=== PATIENT | female | born 1990 | race Caucasian/White ===

== ENCOUNTER 2017-01-16 07:02 | Emergency (ER) | payer BC ==
[2017-01-16] MEDS ORDERED: Dicyclomine 10 MG Cap PO ONE (07:33)
[2017-01-16] MEDS ORDERED: Ondansetron 4 MG/2 ML SDV IVPUSH ONE (07:33)
--- NOTE | 2017-01-16 07:50 | EDM.PDOC ---
<LottIbrahima - Last Filed: 01/16/17 09:20> ED HPI GENERAL MEDICAL PROBLEM - General Chief Complaint: Abdominal Pain Stated Complaint: GALLBLADDER PROBLEMS Time Seen by Provider: 01/16/17 07:06 - History of Present Illness INITIAL COMMENTS - FREE TEXT/NARRATIVE: HISTORY AND PHYSICAL: History of present illness: This is a 26 -year-old female presenting to the emergency department with chief complaint of abdominal pain. Patient states she expresses a similar attack of abdominal pain 2 weeks ago she worked and found to have gallstones. So she is scheduled for a cholecystectomy on January 31. She says this morning she began to experience upper quadrant abdominal pain along with nausea. Denies fevers chills chest pain shortness breath. Review of systems: As per history of present illness and below otherwise all systems reviewed and negative. Past medical history: As per history of present illness and as reviewed below otherwise noncontributory. Surgical history: As per history of present illness and as reviewed below otherwise noncontributory. Social history: No reported history of drug or alcohol abuse. Family history: As per history of present illness and as reviewed below otherwise noncontributory. Physical exam: HEENT: Atraumatic, normocephalic, pupils reactive, negative for conjunctival pallor or scleral icterus, mucous membranes moist, throat clear, neck supple, nontender, trachea midline. Lungs: Clear to auscultation, breath sounds equal bilaterally, chest nontender. Heart: S1S2, regular, negative for clicks, rubs, or JVD. Abdomen: Soft, nondistended, nontender. Negative for masses or hepatosplenomegaly. Negative baum sign Negative for costovertebral tenderness. Extremities: Atraumatic, negative for cords or calf pain. Neurovascular unremarkable. Diagnostics: CBC CMP UA B-hcg Lipase Abdominal US Therapeutics: Zofran 4mg IV once Bentyl PO Impression: [] Plan: [] Definitive disposition and diagnosis as appropriate pending reevaluation and review of above. Upper Abdominal Pain Score (Numeric/FACES): 4 - Related Data Allergies Allergy/AdvReac Type Severity Reaction Status Date / Time ciprofloxacin [From Cipro] Allergy Rash Verified 01/16/17 07:18 ciprofloxacin HCl Allergy Rash Verified 01/16/17 07:18 [From Cipro] penicillin G Allergy Other Verified 01/16/17 07:18 Sulfa (Sulfonamide Allergy Other Verified 01/16/17 07:18 Antibiotics) Home Meds: Home Meds Dicyclomine [Bentyl] 20 mg PO TID #40 tab 01/16/17 [Rx] Loratadine [Claritin] 01/16/17 [History] Ondansetron [Zofran] 4 mg PO Q8H #25 tab 01/16/17 [Rx] Past Medical History - Past Health History Medical/Surgical History: Denies Medical/Surgical History Cardiovascular History: Reports: None Respiratory History: Reports: None Neurological History: Reports: None Psychiatric History: Reports: None - Infectious Disease History Infectious Disease History: Reports: Chicken Pox, Influenza - Past Surgical History HEENT Surgical History: Reports: Other (See Below) Other HEENT Surgeries/Procedures: wisdom tooth surgery Cardiovascular Surgical History: Reports: None Social & Family History - Tobacco Use Smoking Status *Q: Never Smoker Second Hand Smoke Exposure: No - Alcohol Use Days Per Week of Alcohol Use: 1 Number of Drinks Per Day: 2 Total Drinks Per Week: 2 - Recreational Drug Use Recreational Drug Use: No ED ROS GENERAL - Review of Systems Review Of Systems: See Below ED EXAM, GI/ABD - Physical Exam Exam: See Below Course - Vital Signs Last Recorded V/S: Last Vital Signs Temp 36.5 C 01/16/17 09:42 Pulse 65 01/16/17 09:42 Resp 20 01/16/17 09:42 BP 115/72 01/16/17 09:42 Pulse Ox 100 01/16/17 09:42 - Orders/Labs/Meds Labs: Laboratory Tests 01/16/17 01/16/17 01/16/17 Range/Units 07:39 07:39 07:58 WBC 6.16 (4.0-11.0) K/uL RBC 4.57 (4.30-5.90) M/uL Hgb 13.6 (12.0-16.0) g/dL Hct 40.4 (36.0-46.0) % MCV 88.4 (80.0-98.0) fL MCH 29.8 (27.0-32.0) pg MCHC 33.7 (31.0-37.0) g/dL RDW Std Deviation 38.2 (28.0-62.0) fl RDW Coeff of Arnie 12 (11.0-15.0) % Plt Count 222 (150-400) K/uL MPV 10.60 (7.40-12.00) fL Neut % (Auto) 58.9 (48.0-80.0) % Lymph % (Auto) 31.8 (16.0-40.0) % Rice % (Auto) 8.1 (0.0-15.0) % Eos % (Auto) 1.0 (0.0-7.0) % Baso % (Auto) 0.2 (0.0-1.5) % Neut # (Auto) 3.6 (1.4-5.7) K/uL Lymph # (Auto) 2.0 (0.6-2.4) K/uL Rice # (Auto) 0.5 (0.0-0.8) K/uL Eos # (Auto) 0.1 (0.0-0.7) K/uL Baso # (Auto) 0.0 (0.0-0.1) K/uL Sodium 139 (136-146) mmol/L Potassium 3.6 (3.5-5.1) mmol/L Chloride 107 (98-110) mmol/L Carbon Dioxide 25 (21-31) mmol/L BUN 15 (6.0-23.0) mg/dL Creatinine 0.8 (0.6-1.5) mg/dL Est Cr Clr Drug Dosing 108.44 mL/min Estimated GFR (MDRD) > 60.0 ml/min Glucose 99 (60-110) mg/dL Calcium 9.5 (8.8-10.8) mg/dL Total Bilirubin 0.6 (0.1-1.5) mg/dL AST 18 (5-40) IU/L ALT 12 (8-54) IU/L Alkaline Phosphatase 47 (40-150) Total Protein 7.4 (6.0-8.0) g/dL Albumin 4.0 (3.5-5.0) g/dL Globulin 3.4 (2.0-3.5) g/dL Albumin/Globulin Ratio 1.2 L (1.3-2.8) Lipase 19 (7-80) U/L Urine Color Urine Appearance Urine pH (5.0-8.0) Ur Specific Makanda (1.001-1.035) Urine Protein (NEGATIVE) mg/dL Urine Glucose (UA) (NEGATIVE) mg/dL Urine Ketones (NEGATIVE) mg/dL Urine Occult Blood (NEGATIVE) Urine Nitrite (NEGATIVE) Urine Bilirubin (NEGATIVE) Urine Urobilinogen (<2.0) EU/dL Ur Leukocyte Esterase (NEGATIVE) Urine RBC (0-2/HPF) Urine WBC (0-5/HPF) Ur Epithelial Cells (NONE-FEW) Amorphous Sediment (NEGATIVE) Urine Bacteria (NEGATIVE) Urine Mucus (NONE-MOD) Urine HCG, Qual NEGATIVE (NEGATIVE) 01/16/17 Range/Units 07:58 WBC (4.0-11.0) K/uL RBC (4.30-5.90) M/uL Hgb (12.0-16.0) g/dL Hct (36.0-46.0) % MCV (80.0-98.0) fL MCH (27.0-32.0) pg MCHC (31.0-37.0) g/dL RDW Std Deviation (28.0-62.0) fl RDW Coeff of Arnie (11.0-15.0) % Plt Count (150-400) K/uL MPV (7.40-12.00) fL Neut % (Auto) (48.0-80.0) % Lymph % (Auto) (16.0-40.0) % Rice % (Auto) (0.0-15.0) % Eos % (Auto) (0.0-7.0) % Baso % (Auto) (0.0-1.5) % Neut # (Auto) (1.4-5.7) K/uL Lymph # (Auto) (0.6-2.4) K/uL Rice # (Auto) (0.0-0.8) K/uL Eos # (Auto) (0.0-0.7) K/uL Baso # (Auto) (0.0-0.1) K/uL Sodium (136-146) mmol/L Potassium (3.5-5.1) mmol/L Chloride (98-110) mmol/L Carbon Dioxide (21-31) mmol/L BUN (6.0-23.0) mg/dL Creatinine (0.6-1.5) mg/dL Est Cr Clr Drug Dosing mL/min Estimated GFR (MDRD) ml/min Glucose (60-110) mg/dL Calcium (8.8-10.8) mg/dL Total Bilirubin (0.1-1.5) mg/dL AST (5-40) IU/L ALT (8-54) IU/L Alkaline Phosphatase (40-150) Total Protein (6.0-8.0) g/dL Albumin (3.5-5.0) g/dL Globulin (2.0-3.5) g/dL Albumin/Globulin Ratio (1.3-2.8) Lipase (7-80) U/L Urine Color YELLOW Urine Appearance CLEAR Urine pH 5.5 (5.0-8.0) Ur Specific Makanda >= 1.030 (1.001-1.035) Urine Protein NEGATIVE (NEGATIVE) mg/dL Urine Glucose (UA) NEGATIVE (NEGATIVE) mg/dL Urine Ketones NEGATIVE (NEGATIVE) mg/dL Urine Occult Blood NEGATIVE (NEGATIVE) Urine Nitrite NEGATIVE (NEGATIVE) Urine Bilirubin NEGATIVE (NEGATIVE) Urine Urobilinogen 0.2 (<2.0) EU/dL Ur Leukocyte Esterase NEGATIVE (NEGATIVE) Urine RBC NONE SEEN (0-2/HPF) Urine WBC 2-3 (0-5/HPF) Ur Epithelial Cells FEW (NONE-FEW) Amorphous Sediment LIGHT (NEGATIVE) Urine Bacteria FEW (NEGATIVE) Urine Mucus LIGHT (NONE-MOD) Urine HCG, Qual (NEGATIVE) Meds: Medications Discontinued Medications Generic Name Dose Route Start Last Admin Trade Name Freq PRN Reason Stop Dose Admin Dicyclomine HCl 10 mg 01/16/17 07:33 01/16/17 07:46 Bentyl PO 01/16/17 07:34 10 mg ONETIME ONE Administration Ondansetron HCl 4 mg 01/16/17 07:33 01/16/17 07:46 Zofran IVPUSH 01/16/17 07:34 4 mg ONETIME ONE Administration Departure - Departure Time of Disposition: 09:20 Disposition: Home, Self-Care 01 Condition: Good Clinical Impression: Biliary colic - Discharge Information Prescriptions: Dicyclomine [Bentyl] 20 mg PO TID #40 tab Ondansetron [Zofran] 4 mg PO Q8H #25 tab Instructions: Abdominal Pain, Adult, [id number] Referrals: PCP,None [Primary Care Provider] - Forms: ED Department Discharge Additional Instructions: The following information is given to patients seen in the emergency department who are being discharged to home. This information is to outline your options for follow-up care. We provide all patients seen in our emergency department with a follow-up referral. The need for follow-up, as well as the timing and circumstances, are variable depending upon the specifics of your emergency department visit. If you don't have a primary care physician on staff, we will provide you with a referral. We always advise you to contact your personal physician following an emergency department visit to inform them of the circumstance of the visit and for follow-up with them and/or the need for any referrals to a consulting specialist. The emergency department will also refer you to a specialist when appropriate. This referral assures that you have the opportunity for follow-up care with a specialist. All of these measure are taken in an effort to provide you with optimal care, which includes your follow-up. Under all circumstances we always encourage you to contact your private physician who remains a resource for coordinating your care. When calling for follow-up care, please make the office aware that this follow-up is from your recent emergency room visit. If for any reason you are refused follow-up, please contact the [facility] Emergency Department at and asked to speak to the emergency department charge nurse. Please return to seek further medical attention if he expands any fevers, chills , vomiting, worsening abdominal pain. <Lay Portillo - Last Filed: 01/16/17 10:54> ED HPI GENERAL MEDICAL PROBLEM - History of Present Illness INITIAL COMMENTS - FREE TEXT/NARRATIVE: Seen and reviewed this patient with Dr. Lott and agree with above. Patient diagnosed with biliary colic sent home with Katelyn and will follow up with Dr. Driscoll as she is scheduled for cholecystectomy in 2 weeks. Patient is aware to return immediately if any symptoms worsen or change
[2017-01-16 08:22] LABS: CHLORIDE,CL 107 mmol/L (98-110); SODIUM,NA 139 mmol/L (136-146)
--- NOTE | 2017-01-16 09:08 | US ---
Abdominal sonogram Multiple longitudinal and transverse sections were obtained with real-time ultrasound. Findings: The gallbladder is physiologically distended without bile duct dilation and there are no a coustic shadowing calculi. Gallbladder is not tender. Common bile duct is at upper normal limits and the right kidney is normal. Impression: Normal upper abdominal sonogram
[2017-01-16 09:46] VITALS: BP 115/72
== END 2017-01-16 09:43 | disposition home or self-care (01) ==
LOC: MW.ED 07:02
DX: K80.50 Calculus of bile duct without cholangitis or cholecystitis without obstruction (principal); Z98.818 Other dental procedure status; Z88.0 Allergy status to penicillin; Z88.2 Allergy status to sulfonamides; Z88.1 Allergy status to other antibiotic agents
CPT/HCPCS: 36415; 76700; 80053; 81001; 81025; 83690; 85025; 96374; 99284; A9270; J2405

== ENCOUNTER 2017-01-31 10:22 | Day surgery (SDC) | payer BC ==
[~2017-01-31 10:22] MED LIST: Lactated Ringers 1,000 ML IV SCH
--- NOTE | 2017-01-31 11:43 | PCM.PREANE ---
Preanesthetic Assessment - Anesthesia/Transfusion/Family Hx Anesthesia History: Prior Anesthesia Without Reaction Family History of Anesthesia Reaction: No Transfusion History: No Prior Transfusion(s) Intubation History: Unknown - Review of Systems General: No Symptoms Pulmonary: No Symptoms Cardiovascular: No Symptoms Gastrointestinal: Abdominal Pain Neurological: No Symptoms Other: Reports: None - Physical Assessment O2 Sat by Pulse Oximetry: 98 Respiratory Rate: 16 Vital Signs: Last Vital Signs Temp 36.5 C 01/31/17 11:27 Pulse 73 01/31/17 11:27 Resp 16 01/31/17 11:27 BP 136/67 01/31/17 11:27 Pulse Ox 98 01/31/17 11:27 Height: 1.73 m Weight: 81.647 kg ASA Class: 1 Mental Status: Alert & Oriented x3 Airway Class: Mallampati = 2 Dentition: Reports: Normal Dentition Thyro-Mental Finger Breadths: 3 Mouth Opening Finger Breadths: 3 ROM/Head Extension: Full Lungs: Clear to Auscultation, Normal Respiratory Effort Cardiovascular: Regular Rate, Regular Rhythm - Lab Values: Laboratory Last Values Urine HCG, Qual NEGATIVE (NEGATIVE) 01/31/17 10:31 - Allergies Allergies/Adverse Reactions: Allergies Allergy/AdvReac Type Severity Reaction Status Date / Time ciprofloxacin [From Cipro] Allergy Rash Verified 01/16/17 07:18 ciprofloxacin HCl Allergy Rash Verified 01/16/17 07:18 [From Cipro] penicillin G Allergy Other Verified 01/16/17 07:18 Sulfa (Sulfonamide Allergy Other Verified 01/16/17 07:18 Antibiotics) - Blood Blood Available: No - Anesthesia Plan Pre-Op Medication Ordered: None - Acknowledgements Anesthesia Type Planned: MAC Pt an Appropriate Candidate for the Planned Anesthesia: Yes Alternatives and Risks of Anesthesia Discussed w Pt/Guardian: Yes Pt/Guardian Understands and Agrees with Anesthesia Plan: Yes PreAnesthesia Questionnaire - Past Health History Medical/Surgical History: Denies Medical/Surgical History Cardiovascular History: Reports: None Respiratory History: Reports: None Gastrointestinal History: Reports: Chronic Constipation, Other (See Below) ( bloated abdomen, fatty food intolerance, intermittent diarrhea, sludge in gall bladder) Genitourinary History: Reports: Other (See Below) (vulvitis,h/o genital ulcer) Neurological History: Reports: None Psychiatric History: Reports: None - Infectious Disease History Infectious Disease History: Reports: Chicken Pox, Influenza - Past Surgical History Head Surgeries/Procedures: Reports: None HEENT Surgical History: Reports: Oral Surgery, Other (See Below) Other HEENT Surgeries/Procedures: wisdom tooth surgery Cardiovascular Surgical History: Reports: None - SUBSTANCE USE Smoking Status *Q: Never Smoker Second Hand Smoke Exposure: No Days Per Week of Alcohol Use: 1 Number of Drinks Per Day: 2 Total Drinks Per Week: 2 Recreational Drug Use History: No - HOME MEDS Home Medications: Home Meds Dicyclomine [Bentyl] 20 mg PO TID #40 tab 01/16/17 [Rx] Loratadine [Claritin] 10 mg PO DAILY 01/16/17 [History] Ondansetron [Zofran] 4 mg PO Q8H #25 tab 01/16/17 [Rx] Cimetidine [Acid Channel Layer] 200 mg PO ASDIRECTED 01/25/17 [History] - CURRENT (IN HOUSE) MEDS Current Meds: Current Medications Lactated Ringer's (Ringers, Lactated) 1,000 mls @ 125 mls/hr IV ASDIRECTED [facility] Last Admin: 01/31/17 11:30 Dose: 125 mls/hr
[2017-01-31] MEDS ORDERED: Midazolam 1 MG/ML 2 ML SDV ONE (11:48)
[2017-01-31] MEDS ORDERED: Lidocaine 2% 5 ML SDV ONE (11:48)
[2017-01-31] MEDS ORDERED: Propofol 200 MG/20 ML SDV ONE ×2 (11:48→12:05)
[2017-01-31] MEDS ORDERED: fentaNYL 100 MCG/2 ML SDV ONE (11:49)
--- NOTE | 2017-01-31 12:39 | PCM.OPNOTE ---
- General Post-Op/Procedure Note Date of Surgery/Procedure: 01/31/17 Operative Procedure(s): egd w bx. colonosocpy w bx Findings: see dict [id number] Pre Op Diagnosis: abd pain w alternating constipation and diarrhea Post-Op Diagnosis: Same Anesthesia Technique: Moderate Sedation Primary Surgeon: Anil Driscoll Pathology: sent, egd and colon bx Complications: None Condition: Good
--- NOTE | 2017-01-31 13:11 | PCM48HPAN ---
Post Anesthesia Note - EVALUATION WITHIN 48HRS OF ANESTHETIC Vital Signs in Normal Range: Yes Patient Participated in Evaluation: Yes Respiratory Function Stable: Yes Airway Patent: Yes Cardiovascular Function Stable: Yes Hydration Status Stable: Yes Pain Control Satisfactory: Yes Nausea and Vomiting Control Satisfactory: Yes Mental Status Recovered: Yes
--- NOTE | 2017-01-31 13:14 | PCM.POSTAN ---
POST ANESTHESIA ASSESSMENT - MENTAL STATUS Mental Status: Alert - RESPIRATORY Respiratory Status: Respiratory Rate WNL, Airway Patent, O2 Saturation Stable - CARDIOVASCULAR CV Status: Pulse Rate WNL, Blood Pressure Stable - GASTROINTESTINAL GI Status: No Symptoms - POST OP HYDRATION Hydration Status: Adequate & Stable
[2017-01-31 13:50] VITALS: BP 107/89
--- NOTE | 2017-01-31 14:06 | OR ---
SURGEON: Anil Driscoll MD DATE OF PROCEDURE: 01/31/2017 PREOPERATIVE DIAGNOSIS: Abdominal pain and alternating diarrhea and constipation. POSTOPERATIVE DIAGNOSES: Gastritis and hemorrhoids. PROCEDURE PERFORMED: Esophagogastroduodenoscopy with biopsy and colonoscopy with biopsy. EGD FINDINGS: 1. The patient is easily sedated with [employer] INSPECTOR and Diprivan. The patient is soundly snoring. 2. Oropharynx and proximal esophagus are free of disease and no stricture, inflammation, ulceration, or inflammation. Distal esophagus at GE junction at 40 shows mild salmon color change consistent with very mild acid reflux, and stomach rugae is normal in appearance and antrum is a little bit inflamed. No bile, food particle, blood, or ulceration observed. Duodenum was grossly normal. Scope retrieved back to the stomach. Retroflexed look at the fundus of the stomach, there was no hiatal hernia. Biopsy done at antrum, body, GE junction at 40, and sucked out the air while scope pulling out. DESCRIPTION OF PROCEDURE: The patient was taken to the endoscopy room, and with the [employer]PECTOR, Diprivan was administered. A well-lubricated EGD scope was gently inserted through the oropharynx, down the esophagus, passing through the gastroesophageal junction, into the stomach. The mucosa was examined upon the passage. Any etiology will be noted. Once in the stomach, we continued to advance to the distal antrum, passed through the pylorus into the second portion of the duodenum. Again, the mucosa was examined for any abnormality and etiology. The scope was then retrieved back to the stomach and then retroflexed to look at the fundus of the stomach. If a biopsy was indicated, we will biopsy the antrum, body, and gastroesophageal junction. The air will be sucked out while the scope is retrieved to reduce the patient's discomfort. The patient tolerated the procedure well. There were no intraoperative complications. Dr. Driscoll was present through the whole procedure. Prior to surgery, a time-out had been called, the patient identified, procedure identified and antibiotic administered. COLONOSCOPY FINDIN. The patient is easily sedated with [employer]PECTOR and Diprivan. The patient is soundly snoring. 2. Bowel prep is excellent, very little liquid stool, almost to none, and no semi-formed stool. 3. Colon is rather redundant at the sigmoid requiring many maneuvering in order to get to the cecum and cecum indicated by ileocecal fold, one-to-one indentation, light emittance, and appendiceal orifice. Mucosa examined upon scope pulling out, the patient does not have diverticulosis, polyp, mass, growth, inflammation, stricture, ulceration, AV malformation, blood, none of those observed and the patient does not have external hemorrhoids and has very mild internal hemorrhoids. A random biopsy was done for abdominal pain and the patient would benefit from repeat colonoscopy 10 years from today or if clinically indicated otherwise or if biopsy indicated otherwise. DESCRIPTION OF PROCEDURE: The patient was taken to the endoscopy room. A time out was called, patient identified, and procedure identified. Diprivan was then administrated. Patient went from awake to sleep, hearing doctor talking or door closing is normal. Perineum inspection and digital examination were then performed. A well- lubricated colonoscope was gently inserted through the rectum, advanced past the rectosigmoid junction, the descending colon, splenic flexure, transverse colon, hepatic flexure, ascending colon, arrived to the cecum. Cecum was identified as dictated in the finding. Then the scope was carefully withdrawn while attention was paid to the mucosal surface for any abnormality. Air will be sucked out during the scope withdrawal. At the rectum, retroflexed to examine any rectal diseases, fistula or hemorrhoids. During mucosal examination, abnormality or polyp was noted; picture taken and biopsy performed. Patient tolerated procedure well. There were no intraoperative complications, and Dr. Driscoll was present throughout the whole procedure. Always, thank you for the kind referral. SHARONDA / SUZANNE /[id number]
== END 2017-01-31 13:55 | disposition home or self-care (01) ==
LOC: MW.SDS 10:22
PROVIDERS: ATTEND Surgery
DX: K29.50 Unspecified chronic gastritis without bleeding (principal); K64.8 Other hemorrhoids; K58.9 Irritable bowel syndrome, unspecified; Z87.440 Personal history of urinary (tract) infections; Z88.0 Allergy status to penicillin; Z88.1 Allergy status to other antibiotic agents; Z88.2 Allergy status to sulfonamides; Z79.899 Other long term (current) drug therapy; Z98.890 Other specified postprocedural states
CPT/HCPCS: 43239; 45380; 81025; J2250; J3010; J7120; 00740; 88305; 88312; J2704

== ENCOUNTER 2018-03-03 15:39 | Emergency (ER) | payer BC, OTHER ==
[2018-03-03 15:55] VITALS: BP 134/75
--- NOTE | 2018-03-03 16:20 | EDM.PDOC ---
ED HPI GENERAL MEDICAL PROBLEM - General Chief Complaint: Skin Complaint Stated Complaint: SHINGLES Time Seen by Provider: 03/03/18 15:49 Source of Information: Reports: Patient History Limitations: Reports: No Limitations - History of Present Illness INITIAL COMMENTS - FREE TEXT/NARRATIVE: HISTORY AND PHYSICAL: History of present illness: Patient is a 27-year-old female who presents to the emergency room today with concerns of shingles. She states that years ago she did have a shingles outbreak which was very painful to her posterior trunk. Yesterday she noticed some blistering lesions to her right side of her back which felt similar to her previous shingle episode. She describes the pain as a sharp burning sensation. She has tried [id number] Tylenol and ibuprofen without pain relief. She denies any fever, chills, chest pain, shortness of breath or cough. Denies any abdominal pain, nausea, vomiting, diarrhea or constipation. Review of systems: As per history of present illness and below otherwise all systems reviewed and negative. Past medical history: As per history of present illness and as reviewed below otherwise noncontributory. Surgical history: As per history of present illness and as reviewed below otherwise noncontributory. Social history: No reported history of drug or alcohol abuse. Family history: As per history of present illness and as reviewed below otherwise noncontributory. Physical exam: General: Well-developed and well-nourished 27-year-old female. Alert and oriented. Nontoxic appearing and in no acute distress. HEENT: Atraumatic, normocephalic, pupils equal and reactive bilaterally, negative for conjunctival pallor or scleral icterus, mucous membranes moist, throat clear, neck supple, nontender, trachea midline. No drooling or trismus noted. No meningeal signs Lungs: Clear to auscultation, breath sounds equal bilaterally, chest nontender. Heart: S1S2, regular rate and rhythm without overt murmur Abdomen: Soft, nondistended, nontender. Negative for masses or hepatosplenomegaly. Negative for costovertebral tenderness. Pelvis: Stable nontender. Genitourinary: Deferred. Rectal: Deferred. Skin: Vesicular lesions noted in a linear pattern starting at the right posterior back below the bra line that his wrapping towards her axillary line. This does look consistent with herpes zoster. Extremities: Atraumatic, negative for cords or calf pain. Neurovascular unremarkable. Neuro: Awake, alert, oriented. Cranial nerves II through XII unremarkable. Cerebellum unremarkable. Motor and sensory unremarkable throughout. Exam nonfocal. Notes: We discussed signs and symptoms that would prompt her to return to the emergency room. I do want her to follow up with her primary care provider in the next 1-2 days. 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 She voices understanding and is agreeable to plan of care. Diagnostics: None Therapeutics: None Prescription: Acyclovir 800 mg 5 times daily 7 days [place] (#20) Impression: Shingles Plan: 1. Take the medication as prescribed. 2. Avoid hot showers. He may use Benadryl as needed. Take the prescribed [place] for moderate to severe pain. This does cause drowsiness, so do not take it will driving her needing to be functioning outside of the house. 3. Antiviral therapy does reduce the duration of the viral shedding - but this is contagious. Please make sure you are doing good hand washing. 4. Please follow-up with your primary care provider in the next 1-2 days. Return to the ED as needed and as discussed. Definitive disposition and diagnosis as appropriate pending reevaluation and review of above. ribs/back Pain Score (Numeric/FACES): 3 - Related Data Allergies Allergy/AdvReac Type Severity Reaction Status Date / Time ciprofloxacin [From Cipro] Allergy Rash Verified 03/03/18 15:54 ciprofloxacin HCl Allergy Rash Verified 03/03/18 15:54 [From Cipro] penicillin G Allergy Other Verified 03/03/18 15:54 Sulfa (Sulfonamide Allergy Other Verified 03/03/18 15:54 Antibiotics) Home Meds: Home Meds Loratadine [Claritin] 10 mg PO DAILY 01/16/17 [History] Cimetidine [Acid Overlock Operator] 200 mg PO DAILY 01/25/17 [History] Acyclovir 800 mg PO 5XDAY 7 Days #35 tablet 03/03/18 [Rx] Ethinyl Estradiol/Drospirenone [Gianvi 3 mg-0.02 mg Tablet] 1 each PO ASDIRECTED 03/03/18 [History] Hydrocodone/Acetaminophen [Hydrocodon-Acetaminophen 5-325] 1 each PO Q4HR PRN # 20 tablet 03/03/18 [Rx] Past Medical History - Past Health History Medical/Surgical History: Denies Medical/Surgical History Cardiovascular History: Reports: None Respiratory History: Reports: None Gastrointestinal History: Reports: Chronic Constipation, Other (See Below) Genitourinary History: Reports: Other (See Below) Neurological History: Reports: None Psychiatric History: Reports: None - Infectious Disease History Infectious Disease History: Reports: Shingles - Past Surgical History Head Surgeries/Procedures: Reports: None HEENT Surgical History: Reports: Oral Surgery, Other (See Below) Other HEENT Surgeries/Procedures: wisdom tooth surgery Cardiovascular Surgical History: Reports: None Social & Family History - Family History Family Medical History: Noncontributory - Tobacco Use Smoking Status *Q: Never Smoker Second Hand Smoke Exposure: No - Caffeine Use Caffeine Use: Reports: Coffee - Recreational Drug Use Recreational Drug Use: No ED ROS GENERAL - Review of Systems Review Of Systems: ROS reveals no pertinent complaints other than HPI. ED EXAM, SKIN/RASH Exam: See Below (See dictation) Course - Vital Signs Last Recorded V/S: Last Vital Signs Temp 98.1 F 03/03/18 15:52 Pulse 97 03/03/18 15:52 Resp 18 03/03/18 15:52 BP 134/75 03/03/18 15:52 Pulse Ox 96 03/03/18 15:52 Departure - Departure Time of Disposition: 16:19 Disposition: Home, Self-Care 01 Clinical Impression: Shingles Qualifiers: Herpes zoster complications: without complications Qualified Code(s): B02.9 - Zoster without complications - Discharge Information Prescriptions: Hydrocodone/Acetaminophen [Hydrocodon-Acetaminophen 5-325] 1 each PO Q4HR PRN # 20 tablet PRN Reason: Pain Acyclovir 800 mg PO 5XDAY 7 Days #35 tablet Instructions: Shingles, [id number] Referrals: PCP,None [Primary Care Provider] - Forms: ED Department Discharge Additional Instructions: The following information is given to patients seen in the emergency department who are being discharged to home. This information is to outline your options for follow-up care. We provide all patients seen in our emergency department with a follow-up referral. The need for follow-up, as well as the timing and circumstances, are variable depending upon the specifics of your emergency department visit. If you don't have a primary care physician on staff, we will provide you with a referral. We always advise you to contact your personal physician following an emergency department visit to inform them of the circumstance of the visit and for follow-up with them and/or the need for any referrals to a consulting specialist. The emergency department will also refer you to a specialist when appropriate. This referral assures that you have the opportunity for follow-up care with a specialist. All of these measure are taken in an effort to provide you with optimal care, which includes your follow-up. Under all circumstances we always encourage you to contact your private physician who remains a resource for coordinating your care. When calling for follow-up care, please make the office aware that this follow-up is from your recent emergency room visit. If for any reason you are refused follow-up, please contact the [facility] Emergency Department at and asked to speak to the emergency department charge nurse. [facility] [address] [place] [id number] 1. Take the medication as prescribed. 2. Avoid hot showers. He may use Benadryl as needed. Take the prescribed [place] for moderate to severe pain. This does cause drowsiness, so do not take it will driving her needing to be functioning outside of the house. 3. Antiviral therapy does reduce the duration of the viral shedding - but this is contagious. Please make sure you are doing good hand washing. 4. Please follow-up with your primary care provider in the next 1-2 days. Return to the ED as needed and as discussed.
== END 2018-03-03 16:35 | disposition home or self-care (01) ==
LOC: MW.ED 15:39
DX: B02.9 Zoster without complications (principal); Z88.1 Allergy status to other antibiotic agents; Z88.2 Allergy status to sulfonamides; Z79.899 Other long term (current) drug therapy
CPT/HCPCS: 99282; 99283

== ENCOUNTER 2019-05-04 16:18 | Emergency (ER) | payer OTHER ==
[2019-05-04 16:35] VITALS: BP 156/97
--- NOTE | 2019-05-04 17:15 | EDM.PDOC ---
ED HPI GENERAL MEDICAL PROBLEM - General Chief Complaint: General Stated Complaint: CARBON MONOXIDE POISONING Time Seen by Provider: 05/04/19 16:34 Source of Information: Reports: Patient History Limitations: Reports: No Limitations - History of Present Illness INITIAL COMMENTS - FREE TEXT/NARRATIVE: HISTORY AND PHYSICAL: History of present illness: Patient is a 28-year-old female who presents to the ED today with concern of a year-long feeling of feeling tired, run down, and dizzy. Patient states she has had multiple workups in the past to evaluate this and has not found a source. Patient states that she had her furnace fixed today and was told that the furnace could have been leaking carbon monoxide. Patient is concerned that she may be exposed to chronic carbon monoxide. Patient denies any change in her symptoms from her baseline over the past year. Patient denies any other symptoms or concerns. Patient denies fever, chills, chest pain, shortness of breath, or cough. Denies headache, neck stiff ness, change in vision, syncope, or near syncope. Denies nausea, vomiting, abdominal pain, diarrhea, constipation, or dysuria. Has not noted any blood in urine or stool. Patient has been eating and drinking appropriately. Review of systems: As per history of present illness and below otherwise all systems reviewed and negative. Past medical history: As per history of present illness and as reviewed below otherwise noncontributory. Surgical history: As per history of present illness and as reviewed below otherwise noncontributory. Social history: See social history for further information Family history: As per history of present illness and as reviewed below otherwise noncontributory. Physical exam: General: Patient is alert, oriented, and in no acute distress. Patient sitting comfortably on exam table. HEENT: Atraumatic, normocephalic, pupils equal and reactive bilaterally, negative for conjunctival pallor or scleral icterus, mucous membranes moist, TMs normal bilaterally, throat clear, neck supple, nontender, trachea midline. No drooling or trismus noted. No meningeal signs. No hot potato voice noted. Lungs: Clear to auscultation, breath sounds equal bilaterally, chest nontender. Heart: S1S2, regular rate and rhythm without overt murmur Abdomen: Soft, nondistended, nontender. Negative for masses or hepatosplenomegaly. Negative for costovertebral tenderness. Pelvis: Stable nontender. Genitourinary: Deferred. Rectal: Deferred. Skin: Intact, warm, dry. No lesions or rashes noted. Extremities: Atraumatic, negative for cords or calf pain. Neurovascular unremarkable. Neuro: Awake, alert, oriented. Cranial nerves II through XII unremarkable. Cerebellum unremarkable. Motor and sensory unremarkable throughout. Exam nonfocal. Notes: Discussed the importance for follow-up with a primary care provider. Voices understanding and is agreeable to plan of care. Denies any further questions or concerns at this time. Diagnostics: CBC, CMP, TSH, UA, carboxyhemoglobin Therapeutics: None Prescription: None Impression: Medical screening exam Plan: 1. You can alternate ibuprofen and Tylenol as directed for pain and discomfort. 2. Follow-up with your primary care provider as discussed. Return to the ED as needed and as discussed. Definitive disposition and diagnosis as appropriate pending reevaluation and review of above. - Related Data Allergies Allergy/AdvReac Type Severity Reaction Status Date / Time ciprofloxacin [From Cipro] Allergy Rash Verified 03/03/18 15:54 ciprofloxacin HCl Allergy Rash Verified 03/03/18 15:54 [From Cipro] penicillin G Allergy Other Verified 03/03/18 15:54 Sulfa (Sulfonamide Allergy Other Verified 03/03/18 15:54 Antibiotics) Home Meds: Home Meds Loratadine [Claritin] 10 mg PO DAILY 01/16/17 [History] Cimetidine [Tagamet Hb] 400 mg PO DAILY 05/04/19 [History] Ethinyl Estradiol/Drospirenone [Gianvi 3 mg-0.02 mg Tablet] 1 tab PO DAILY 05/04 [History] Sertraline HCl [Zoloft] 50 mg PO BEDTIME 05/04/19 [History] Past Medical History - Past Health History Medical/Surgical History: Denies Medical/Surgical History Cardiovascular History: Reports: None Respiratory History: Reports: None Gastrointestinal History: Reports: Chronic Constipation, Other (See Below) Genitourinary History: Reports: Other (See Below) Neurological History: Reports: None Psychiatric History: Reports: None, Anxiety - Infectious Disease History Infectious Disease History: Reports: Shingles - Past Surgical History Head Surgeries/Procedures: Reports: None HEENT Surgical History: Reports: Oral Surgery, Other (See Below) Other HEENT Surgeries/Procedures: wisdom tooth surgery Cardiovascular Surgical History: Reports: None Social & Family History - Family History Family Medical History: Noncontributory - Tobacco Use Smoking Status *Q: Never Smoker - Caffeine Use Caffeine Use: Reports: Coffee - Recreational Drug Use Recreational Drug Use: No ED ROS GENERAL - Review of Systems Review Of Systems: Comprehensive ROS is negative, except as noted in HPI. ED EXAM, GENERAL - Physical Exam Exam: See Below (See dictation) Course - Vital Signs Last Recorded V/S: Last Vital Signs Temp 96.7 F 05/04/19 16:32 Pulse 114 H 05/04/19 16:32 Resp 18 05/04/19 16:32 BP 156/97 H 05/04/19 16:32 Pulse Ox 97 05/04/19 16:32 - Orders/Labs/Meds Labs: Laboratory Tests 05/04/19 05/04/19 05/04/19 Range/Units 17:21 17:21 17:21 WBC 7.84 (4.0-11.0) K/uL RBC 4.52 (4.30-5.90) M/uL Hgb 13.7 (12.0-16.0) g/dL Hct 39.8 (36.0-46.0) % MCV 88.1 (80.0-98.0) fL MCH 30.3 (27.0-32.0) pg MCHC 34.4 (31.0-37.0) g/dL RDW Std Deviation 38.1 (28.0-62.0) fl RDW Coeff of Arnie 12 (11.0-15.0) % Plt Count 250 (150-400) K/uL MPV 10.20 (7.40-12.00) fL Neut % (Auto) 48.7 (48.0-80.0) % Lymph % (Auto) 41.7 H (16.0-40.0) % Dundy % (Auto) 8.8 (0.0-15.0) % Eos % (Auto) 0.5 (0.0-7.0) % Baso % (Auto) 0.3 (0.0-1.5) % Neut # (Auto) 3.8 (1.4-5.7) K/uL Lymph # (Auto) 3.3 H (0.6-2.4) K/uL Dundy # (Auto) 0.7 (0.0-0.8) K/uL Eos # (Auto) 0.0 (0.0-0.7) K/uL Baso # (Auto) 0.0 (0.0-0.1) K/uL ABG Carboxyhemoglobin 1.5 (0-15) % Sodium 139 (136-145) mmol/L Potassium 4.0 (3.5-5.1) mmol/L Chloride 103 (98-107) mmol/L Carbon Dioxide 25.8 (21.0-32.0) mmol/L BUN 15 (7.0-18.0) mg/dL Creatinine 0.8 (0.6-1.0) mg/dL Est Cr Clr Drug Dosing 106.56 mL/min Estimated GFR (MDRD) > 60.0 ml/min Glucose 92 (74-106) mg/dL Calcium 9.2 (8.5-10.1) mg/dL Total Bilirubin 0.2 (0.2-1.0) mg/dL AST 21 (15-37) IU/L ALT 23 (14-63) IU/L Alkaline Phosphatase 43 L (46-116) U/L Total Protein 7.5 (6.4-8.2) g/dL Albumin 3.5 (3.4-5.0) g/dL Globulin 4.0 (2.6-4.0) g/dL Albumin/Globulin Ratio 0.9 (0.9-1.6) TSH 3rd Generation 1.40 (0.36-3.74) uIU/mL Urine Color Urine Appearance Urine pH (5.0-8.0) Ur Specific Flora (1.001-1.035) Urine Protein (NEGATIVE) mg/dL Urine Glucose (UA) (NEGATIVE) mg/dL Urine Ketones (NEGATIVE) mg/dL Urine Occult Blood (NEGATIVE) Urine Nitrite (NEGATIVE) Urine Bilirubin (NEGATIVE) Urine Urobilinogen (<2.0) EU/dL Ur Leukocyte Esterase (NEGATIVE) 05/04/19 Range/Units 17:38 WBC (4.0-11.0) K/uL RBC (4.30-5.90) M/uL Hgb (12.0-16.0) g/dL Hct (36.0-46.0) % MCV (80.0-98.0) fL MCH (27.0-32.0) pg MCHC (31.0-37.0) g/dL RDW Std Deviation (28.0-62.0) fl RDW Coeff of Arnie (11.0-15.0) % Plt Count (150-400) K/uL MPV (7.40-12.00) fL Neut % (Auto) (48.0-80.0) % Lymph % (Auto) (16.0-40.0) % Dundy % (Auto) (0.0-15.0) % Eos % (Auto) (0.0-7.0) % Baso % (Auto) (0.0-1.5) % Neut # (Auto) (1.4-5.7) K/uL Lymph # (Auto) (0.6-2.4) K/uL Dundy # (Auto) (0.0-0.8) K/uL Eos # (Auto) (0.0-0.7) K/uL Baso # (Auto) (0.0-0.1) K/uL ABG Carboxyhemoglobin (0-15) % Sodium (136-145) mmol/L Potassium (3.5-5.1) mmol/L Chloride (98-107) mmol/L Carbon Dioxide (21.0-32.0) mmol/L BUN (7.0-18.0) mg/dL Creatinine (0.6-1.0) mg/dL Est Cr Clr Drug Dosing mL/min Estimated GFR (MDRD) ml/min Glucose (74-106) mg/dL Calcium (8.5-10.1) mg/dL Total Bilirubin (0.2-1.0) mg/dL AST (15-37) IU/L ALT (14-63) IU/L Alkaline Phosphatase (46-116) U/L Total Protein (6.4-8.2) g/dL Albumin (3.4-5.0) g/dL Globulin (2.6-4.0) g/dL Albumin/Globulin Ratio (0.9-1.6) TSH 3rd Generation (0.36-3.74) uIU/mL Urine Color YELLOW Urine Appearance CLEAR Urine pH 6.0 (5.0-8.0) Ur Specific Flora 1.025 (1.001-1.035) Urine Protein NEGATIVE (NEGATIVE) mg/dL Urine Glucose (UA) NEGATIVE (NEGATIVE) mg/dL Urine Ketones NEGATIVE (NEGATIVE) mg/dL Urine Occult Blood NEGATIVE (NEGATIVE) Urine Nitrite NEGATIVE (NEGATIVE) Urine Bilirubin NEGATIVE (NEGATIVE) Urine Urobilinogen 0.2 (<2.0) EU/dL Ur Leukocyte Esterase NEGATIVE (NEGATIVE) Departure - Departure Time of Disposition: 18:15 Disposition: Home, Self-Care 01 Clinical Impression: Encounter for medical screening examination - Discharge Information Referrals: PCP,Unknown [Primary Care Provider] - Forms: ED Department Discharge Additional Instructions: The following information is given to patients seen in the emergency department who are being discharged to home. This information is to outline your options for follow-up care. We provide all patients seen in our emergency department with a follow-up referral. The need for follow-up, as well as the timing and circumstances, are variable depending upon the specifics of your emergency department visit. If you don't have a primary care physician on staff, we will provide you with a referral. We always advise you to contact your personal physician following an emergency department visit to inform them of the circumstance of the visit and for follow-up with them and/or the need for any referrals to a consulting specialist. The emergency department will also refer you to a specialist when appropriate. This referral assures that you have the opportunity for follow-up care with a specialist. All of these measure are taken in an effort to provide you with optimal care, which includes your follow-up. Under all circumstances we always encourage you to contact your private physician who remains a resource for coordinating your care. When calling for follow-up care, please make the office aware that this follow-up is from your recent emergency room visit. If for any reason you are refused follow-up, please contact the [facility] Emergency Department at and asked to speak to the emergency department charge nurse. [facility] [address] [place] [address] [id number] [address] [id number] 1. You can alternate ibuprofen and Tylenol as directed for pain and discomfort. 2. Follow-up with your primary care provider as discussed. Return to the ED as needed and as discussed.
[2019-05-04 18:14] LABS: BLOOD UREA NITROGEN,BUN 15 mg/dL (7.0-18.0); CARBON DIOXIDE,CO2 25.8 mmol/L (21.0-32.0); CHLORIDE,CL 103 mmol/L (98-107); GLUCOSE RANDOM 92 mg/dL (74-106); SODIUM,NA 139 mmol/L (136-145)
[2019-05-04 18:36] VITALS: PULSE 85
== END 2019-05-04 18:35 | disposition home or self-care (01) ==
LOC: MW.ED 16:18
DX: Z77.098 Contact with and (suspected) exposure to other hazardous, chiefly nonmedicinal, chemicals (principal); F41.9 Anxiety disorder, unspecified; Z79.899 Other long term (current) drug therapy; Z88.1 Allergy status to other antibiotic agents; Z88.0 Allergy status to penicillin; Z88.2 Allergy status to sulfonamides
CPT/HCPCS: 36415; 80053; 81003; 82375; 84443; 85025; 99282; 99284